=== PATIENT | male | born 1990 | race African-American/Black ===

== ENCOUNTER 2016-09-24 15:20 | Emergency (ER) | payer OTHER | END 2016-09-24 15:47 | disposition home or self-care (01) | LOC: ER 15:20 | DX: J20.9 Acute bronchitis, unspecified (principal); F17.210 Nicotine dependence, cigarettes, uncomplicated; Z88.5 Allergy status to narcotic agent ==

== ENCOUNTER 2016-10-23 09:23 | Emergency (ER) | payer OTHER | END 2016-10-23 12:00 | disposition home or self-care (01) | LOC: ER 09:23 | DX: M54.42 Lumbago with sciatica, left side (principal); J45.909 Unspecified asthma, uncomplicated; F17.210 Nicotine dependence, cigarettes, uncomplicated; Z88.5 Allergy status to narcotic agent; Z79.899 Other long term (current) drug therapy | CPT/HCPCS: 73502-LT ==